=== PATIENT | male | born 1990 | race Two or more races ===

== ENCOUNTER 2016-09-24 09:32 | Day surgery (SDC) | payer OTHER ==
[2016-09-24] MEDS ORDERED: MIDAZOLAM HCL 2 MG/2 ML SINGLE DOSE VIAL ONE (10:17)
[2016-09-24] MEDS ORDERED: LIDOCAINE HCL 2% (20ML MULTI-DOSE VIAL) NR ONE (10:27)
[2016-09-24] MEDS ORDERED: PROPOFOL 20 ML ONE ×4 (10:44→11:09)
[2016-09-24] MEDS ORDERED: LIDOCAINE HCL 2% (50ML VIAL) INF ONE (10:49)
[2016-09-24 11:53] VITALS: TEMP 98
[2016-09-24] MEDS ORDERED: LIDOCAINE HCL/PF 2% SDV 5ML VIAL ONE (11:55)
[2016-09-24 11:57] VITALS: BP 123/60; PULSE 77
[2016-09-24] MEDS ORDERED: ceFAZolin SODIUM 1 GM VIAL ONE (12:06)
[2016-09-24] MEDS ORDERED: PHENYLEPHRINE HCL 10 MG/1 ML SINGLE DOSE VIAL ONE (12:08)
[2016-09-24] MEDS ORDERED: ePHEDrine SULFATE 50 MG/1 ML AMPULE ONE (12:08)
[2016-09-24] MEDS ORDERED: ONDANSETRON 4 MG/2 ML VIAL ONE (12:15)
[2016-09-24] MEDS ORDERED: DEXAMETHASONE SOD PHOSPHATE 4 MG/1 ML VIAL ONE (12:15)
--- NOTE | 2016-09-25 17:42 | OP ---
DATE OF OPERATION: 09/24/2016 PREOPERATIVE DIAGNOSIS: Left carpal tunnel syndrome. POSTOPERATIVE DIAGNOSIS: Left carpal tunnel syndrome. OPERATIVE PROCEDURE: Left carpal tunnel release. ANESTHESIA: Local with sedation. COMPLICATIONS: None. ESTIMATED BLOOD LOSS: Minimal. INDICATIONS FOR PROCEDURE: The patient is a 25-year-old male with above finding, indicated for operative treatment. Risks, benefits, alternatives were discussed with patient at length. Proper informed consent was obtained. PROCEDURE: After proper identification of patient and correct operative site, patient brought to operating room, placed supine on the operating table, all prominences well padded. Sedation was given by the anesthesiologist. Local anesthesia was given, 2% lidocaine. The left upper extremity was prepped and draped in usual sterile fashion. A well-padded tourniquet placed over the sterile prep. Esmarch bandage to exsanguinate left upper extremity. Tourniquet was inflated to 250 mmHg. A longitudinal incision was made over the proximal aspect of the palm. Incision was taken sharply through the skin with blunt and sharp dissection through subcutaneous tissues. Palmar fascia was divided longitudinally. Transverse carpal ligament along with the distal 4 cm of antebrachial fascia were divided longitudinally under direct visualization and loupe magnification. This provided a complete release of the median nerve at the wrist. The wound was irrigated with copious amounts of normal saline and repaired with a 5-0 nylon suture. Sterile dressings were applied. Patient was reversed from anesthesia and brought to recovery room in stable condition. He tolerated procedure well. RICHMOND DYER M.D. [id number]
== END 2016-09-24 12:00 | disposition home or self-care (01) ==
LOC: FASU 09:32
PROVIDERS: ATTEND Orthopaedic Surgery Hand Surgery
PROC: 01N50ZZ Release Median Nerve, Open Approach (ICD-10-PCS; principal; 2016-09-24 11:00)
DX: G56.02 Carpal tunnel syndrome, left upper limb (principal)